=== PATIENT | male | born 2000 | race Caucasian/White ===

== ENCOUNTER 2022-07-16 07:03 | Inpatient (IN) | payer MEDICAID, SELFPAY ==
[2022-07-16] VITALS (23 sets, daily range): BP systolic 110–167; BP diastolic 50–129; PULSE 103–128; RESP 16–20; TEMP 36.2–36.9; O2SAT 91–100; BMI 34.9
--- NOTE | 2022-07-16 07:16 | ED.ABDPAIN ---
HPI - Abdominal Pain General Chief Complaint: Abdominal Pain <Du Nava MD - Last Filed: 07/16/22 07:21> Stated Complaint: Stomach pain <Du Nava MD - Last Filed: 07/16/22 07:21> Time Seen by Provider: 07/16/22 07:11 <Du Nava MD - Last Filed: 07/16/22 07:21> History of Present Illness HPI narrative: Pt is a previously healthy 22 year old gentleman who presents with lower abd pain. Pain has been present for the past 3 days. No diarrhea but he has had some occasional vomiting without blood. No fevers or chills at home. Others at home have had mild GI symptoms as well. Pt states that the pain is severe at times but currently is only moderate. Pt states the pain is primarily in the midline below his belly button. No similar symptoms and no previous surgery. Pt appetite has been reduced as has his fluid intake. <Du Nava MD - Last Filed: 07/16/22 07:21> Related Data Home Medications: Home Medications Medication Instructions Recorded Confirmed No Known Home Medications 07/16/22 07/16/22 <Du Nava MD - Last Filed: 07/16/22 07:21> Allergies/Adverse Reactions: Allergies Allergy/AdvReac Type Severity Reaction Status Date / Time No Known Drug Allergies Allergy Verified 07/16/22 07:16 <Du Nava MD - Last Filed: 07/16/22 07:21> Review of Systems Status of ROS Reports: 10 or more systems reviewed and unremarkable except as noted in History and below <Du Nava MD - Last Filed: 07/16/22 07:21> PFS PFS Surgical History: Surgical History (Updated 07/16/22 @ 11:05 by Dorcas Sidhu MD) [place] teeth extracted ?K08.409 - Partial loss of teeth, unspecified cause, unspecified class (ICD-10) <Du Nava MD - Last Filed: 07/16/22 07:21> Social History: Social History (Updated 07/16/22 @ 11:05 by Dorcas Sidhu MD) Narrative: 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 Smoking Status: Never smoker Do you use any of these nicotine containing products: None How often do you have a drink containing alcohol: 2-4 times a month AUDIT-C Alcohol total score: 2 Non-prescribed substance use: denies use <Du Nava MD - Last Filed: 07/16/22 07:21> Exam Narrative: Exam Narrative: EXAM GENERAL: Patient appears frightened. EYES: No scleral icterus THYROID: no thyroid nodules or thyromegaly. LYMPH: No supraclavicular or cervical lymphadenopathy. SKIN: Visible skin seen during exam normal or with benign process only. EXT: No dependent lower extremity pedal edema. HEART: Tachycardic but regular LUNGS: Clear to auscultation bilaterally with no crackles or wheezes. ABD: Mildly distended hypoactive bowel sounds no rebound noted. PSYCH: Good eye contact, speech is not pressured. Neurologic cranial nerves 2-12 grossly intact no focal defects. <Du Nava MD - Last Filed: 07/16/22 07:21> Const: Vital Signs, click to edit/add: Vital Signs - 24 hr 07/16/22 07:14 07/16/22 08:13 Temperature 98.4 F Pulse Rate [Right Pulse Oximeter] 128 H 117 H Respiratory Rate 20 18 Blood Pressure [Ri ght Upper Arm] 127/71 113/71 Pulse Oximetry 97 97 Oxygen Delivery Me thod Room Air Room Air <Du Nava MD - Last Filed: 07/16/22 07:21> Vital Signs, click to edit/add: Vital Signs - 24 hr 07/16/22 07:14 07/16/22 08:13 Temperature 98.4 F Pulse Rate [Right Pulse Oximeter] 128 H 117 H Respiratory Rate 20 18 Blood Pressure [Ri ght Upper Arm] 127/71 113/71 Pulse Oximetry 97 97 Oxygen Delivery Me thod Room Air Room Air <Stephie Zavala MD - Last Filed: 07/16/22 13:01> Course Course Hospital Course: Pt seen and examined. Tachycardia noted. CT of abd and pelvis, UA, CBC, Amylase, Lipase, CMP ordered. Pt given 1 liter of normal saline and 4 mg of IV Zofran. <Du Nava MD - Last Filed: 07/16/22 07:21> Reevaluation(s) Reevaluation #1: Reviewed with patient that his COVID PCR was positive. He does not have any active symptoms currently of COVID, does not recollect any recent illness. We will be doing the indigent to see if he is still shutting any COVID virus. Reviewed that he has acute appendicitis, the surgeon will be in to discuss this with him further. Plan will be to go to the OR. He states his pain is controlled at this time. <Stephie Zavala MD - Last Filed: 07/16/22 13:01> Time: 09:28 <Stephie Zavala MD - Last Filed: 07/16/22 13:01> Consultations Consultation #1: Radiologist did call me to say that there was appendicitis with perforation. Called surgery on-call Dr. Eller after that. She did look at his scans. She is going to attempt to get the surgical team in quickly, will try to initiate antibiotics within 1 hour of going to the OR. His COVID PCR came back positive, am going to test his antigen. Will try to find out if he is had any recent COVID illness or symptoms. Did review with both the radiologist as well as the surgeon that his urine is showing positivity on nitrates. I do wonder if the right ureter might be inflamed from the appendicitis and triggering this result. His creatinine is just mildly elevated as well. This will have to be followed, urine culture is pending. Again antibiotics will be initiated with coordination with the general surgeon. <Stephie Zavala MD - Last Filed: 07/16/22 13:01> Time: 09:08 <Stephie Zavala MD - Last Filed: 07/16/22 13:01> Vital Signs Vital signs: Initial Vital Signs Temperature 98.4 F 07/16/22 07:14 Temperature Source Oral 07/16/22 07:14 Pulse Rate 128 H 07/16/22 07:14 Respiratory Rate 20 07/16/22 07:14 Blood Pressure 127/71 07/16/22 07:14 Blood Pressure Mean 89 07/16/22 07:14 Blood Pressure Position Sitting 07/16/22 07:14 Pulse Oximetry 97 07/16/22 07:14 Oxygen Delivery Method Room Air 07/16/22 07:14 Vital Signs Temperature 98.4 F 07/16/22 07:14 Pulse Rate 128 H 07/16/22 07:14 Respiratory Rate 20 07/16/22 07:14 Blood Pressure 127/71 07/16/22 07:14 Pulse Oximetry 97 07/16/22 07:14 Oxygen Delivery Method Room Air 07/16/22 07:14 Temperature 98.4 F 07/16/22 07:14 Pulse Rate 117 H 07/16/22 08:13 Respiratory Rate 18 07/16/22 08:13 Blood Pressure 113/71 07/16/22 08:13 Pulse Oximetry 97 07/16/22 08:13 Oxygen Delivery Method Room Air 07/16/22 08:13 <Du Nava MD - Last Filed: 07/16/22 07:21> Initial Vital Signs Temperature 98.4 F 07/16/22 07:14 Temperature Source Oral 07/16/22 07:14 Pulse Rate 128 H 07/16/22 07:14 Respiratory Rate 20 07/16/22 07:14 Blood Pressure 127/71 07/16/22 07:14 Blood Pressure Mean 89 07/16/22 07:14 Blood Pressure Position Sitting 07/16/22 07:14 Pulse Oximetry 97 07/16/22 07:14 Oxygen Delivery Method Room Air 07/16/22 07:14 Vital Signs Temperature 98.4 F 07/16/22 07:14 Pulse Rate 128 H 07/16/22 07:14 Respiratory Rate 20 07/16/22 07:14 Blood Pressure 127/71 07/16/22 07:14 Pulse Oximetry 97 07/16/22 07:14 Oxygen Delivery Method Room Air 07/16/22 07:14 Temperature 98.4 F 07/16/22 07:14 Pulse Rate 117 H 07/16/22 08:13 Respiratory Rate 18 07/16/22 08:13 Blood Pressure 113/71 07/16/22 08:13 Pulse Oximetry 97 07/16/22 08:13 Oxygen Delivery Method Room Air 07/16/22 08:13 <Stephie Zavala MD - Last Filed: 07/16/22 13:01> MDM - Abdominal Pain Differential Diagnosis Differential diagnosis: Likely abdominal pain, acute appendicitis, calculus of kidney, constipation, diverticulitis, gastroenteritis and small bowel obstruction <Stephie Zavala MD - Last Filed: 07/16/22 13:01> Lab Data Attestation: I reviewed the patient's lab results. <Stephie Zavala MD - Last Filed: 07/16/22 13:01> Labs: Lab Results 07/16/22 07/16/22 07/16/22 Range/Units 07:25 08:26 09:13 WBC 29.51 H* (4.50-11.00) K/uL RBC 6.23 H (4.30-5.90) m/uL Hgb 17.0 (13.5-17.5) gm/dL Hct 49.6 (37.0-53.0) % MCV 80 (80-100) fL MCH 27 (26-34) pg MCHC 34 (32-36) gm/dL RDW Coeff of Lucy 14.3 (11.5-15.5) % Plt Count 270 (140-440) K/uL Neut % (Auto) 90.2 H (42.0-72.0) % Lymph % (Auto) 4.3 L (20-44) % [place] % (Auto) 4.8 (0.0-11.0) % Eos % (Auto) 0.0 (0.0-7.0) % Baso % (Auto) 0.1 (0.0-3.0) % Neut # (Auto) 26.60 H (1.7-7.0) K/uL Lymph # (Auto) 1.30 (0.90-2.90) K/uL [place] # (Auto) 1.40 H (0.00-0.90) K/UL Eos # (Auto) 0.00 (0.00-0.50) K/uL Baso # (Auto) 0.00 (0.00-0.30) K/uL Diff Slide Review Acceptable Review (Acceptable) Sodium 132 L (135-149) mmol/L Potassium 4.4 (3.6-5.1) mmol/L Chloride 98 (96-114) mmol/L Carbon Dioxide 21 (20-32) mmol/L BUN 18 (5-24) mg/dL Creatinine 1.7 H (0.5-1.5) mg/dL Estimated Creat Clear 59.29 Estimated GFR 58 ml/min Glucose 170 H (60-115) mg/dL Calcium 9.0 (8.4-10.6) mg/dL Total Bilirubin 1.7 H (0.1-1.5) mg/dL AST 29 (12-35) U/L ALT 72 H (4-50) U/L Alkaline Phosphatase 93 (40-150) U/L Total Protein 8.1 (6.0-8.3) g/dL Albumin 4.6 (3.3-5.0) g/dL Amylase 59 (18-89) U/L Lipase 32 (23-300) U/L Urine Color Lori A (Yellow) Urine Appearance Slightly Cloudy A (Clear) Urine pH 5.0 (5.0-8.5) Ur Specific [place] >= 1.030 (1.000-1.030) Urine Protein 3+ A (Negative) Urine Glucose (UA) Negative (Negative) Urine Ketones Trace A (Negative) Urine Blood Trace-intact A (Negative) Urine Nitrite Positive A (Negative) Urine Bilirubin 2+ A (Negative) Urine Urobilinogen 1.0 (0.2-1.0) Ur Leukocyte Esterase Negative (Negative) Urine RBC 0-2 (0-2) Urine WBC 0-2 (0-5) Ur Squamous Epith Cells None (None-Few) Amorphous Sediment Moderate A (None) Urine Bacteria Many A (None) SARS-CoV-2 (PCR) POSITIVE SARS-CoV-2 A (Negative) SARS-CoV-2 Ag (Rapid) negative (Negative) <Du Nava MD - Last Filed: 07/16/22 07:21> Lab Results 07/16/22 07/16/22 07/16/22 Range/Units 07:25 08:26 09:13 WBC 29.51 H* (4.50-11.00) K/uL RBC 6.23 H (4.30-5.90) m/uL Hgb 17.0 (13.5-17.5) gm/dL Hct 49.6 (37.0-53.0) % MCV 80 (80-100) fL MCH 27 (26-34) pg MCHC 34 (32-36) gm/dL RDW Coeff of Lucy 14.3 (11.5-15.5) % Plt Count 270 (140-440) K/uL Neut % (Auto) 90.2 H (42.0-72.0) % Lymph % (Auto) 4.3 L (20-44) % [place] % (Auto) 4.8 (0.0-11.0) % Eos % (Auto) 0.0 (0.0-7.0) % Baso % (Auto) 0.1 (0.0-3.0) % Neut # (Auto) 26.60 H (1.7-7.0) K/uL Lymph # (Auto) 1.30 (0.90-2.90) K/uL [place] # (Auto) 1.40 H (0.00-0.90) K/UL Eos # (Auto) 0.00 (0.00-0.50) K/uL Baso # (Auto) 0.00 (0.00-0.30) K/uL Diff Slide Review Acceptable Review (Acceptable) Sodium 132 L (135-149) mmol/L Potassium 4.4 (3.6-5.1) mmol/L Chloride 98 (96-114) mmol/L Carbon Dioxide 21 (20-32) mmol/L BUN 18 (5-24) mg/dL Creatinine 1.7 H (0.5-1.5) mg/dL Estimated Creat Clear 59.29 Estimated GFR 58 ml/min Glucose 170 H (60-115) mg/dL Calcium 9.0 (8.4-10.6) mg/dL Total Bilirubin 1.7 H (0.1-1.5) mg/dL AST 29 (12-35) U/L ALT 72 H (4-50) U/L Alkaline Phosphatase 93 (40-150) U/L Total Protein 8.1 (6.0-8.3) g/dL Albumin 4.6 (3.3-5.0) g/dL Amylase 59 (18-89) U/L Lipase 32 (23-300) U/L Urine Color Lori A (Yellow) Urine Appearance Slightly Cloudy A (Clear) Urine pH 5.0 (5.0-8.5) Ur Specific [place] >= 1.030 (1.000-1.030) Urine Protein 3+ A (Negative) Urine Glucose (UA) Negative (Negative) Urine Ketones Trace A (Negative) Urine Blood Trace-intact A (Negative) Urine Nitrite Positive A (Negative) Urine Bilirubin 2+ A (Negative) Urine Urobilinogen 1.0 (0.2-1.0) Ur Leukocyte Esterase Negative (Negative) Urine RBC 0-2 (0-2) Urine WBC 0-2 (0-5) Ur Squamous Epith Cells None (None-Few) Amorphous Sediment Moderate A (None) Urine Bacteria Many A (None) SARS-CoV-2 (PCR) POSITIVE SARS-CoV-2 A (Negative) SARS-CoV-2 Ag (Rapid) negative (Negative) <Stephie Zavala MD - Last Filed: 07/16/22 13:01> Imaging Data CT scan - abdomen: Attestation: I have reviewed the pertinent imaging results. <Stephie Zavala MD - Last Filed: 07/16/22 13:01> Radiologist's impression: Patient: JENNIFER CHRISTOPHER Facility:?[facility] Patient ID:?[id number] Site Patient ID:?[id number]. Site :?[id number] Study:?CT Abdomen/Pelvis W ISOVUE 370-07/16/2022 7:59:20 AM Ordering Physician:?Brandy Sandy Final Report: INDICATION: ABD PAIN TECHNIQUE: CT abdomen and pelvis with 100 cc Isovue 370 IV contrast. COMPARISON: None. FINDINGS: Hepatomegaly and hepatic steatosis. Gallbladder and biliary tree are normal. The spleen, adrenal glands and pancreas are within normal limits. No evidence of bowel obstruction. Dilated fluid-filled appendix measuring 1.4 cm, with wall thickening and surrounding inflammation. Within the midportion appendix there is an appendicolith measuring approximately 1 cm. There is also open globe at the appendix base measuring 1.2 cm. The kidneys are unremarkable. Inflamed appendix abuts the distal right ureter without evidence of hydronephrosis. Decompressed bladder. Throughout the abdomen there is scattered small amount of pneumoperitoneum. Small amount of free fluid in the pelvis. Pelvic organs are unremarkable. The lower chest is unremarkable. IMPRESSION: Findings compatible with acute appendicitis. Throughout the abdomen and scattered small amount of pneumoperitoneum which is concerning for perforated appendicitis. There is a 1.2 cm appendicolith at the appendix base. Hepatomegaly and hepatic steatosis. Findings discussed Dr. Stephie Damon at 9:10 a.m. Please note that all CT scans at this facility use dose modulation, iterative reconstruction, and/or weight-based dosing when appropriate to reduce radiation dose to as low as reasonably achievable. Dictated by Yrn Ruiz MD @ 07/16/2022 9:12:33 AM (Electronic Signature) <Stephie Zavala MD - Last Filed: 07/16/22 13:01> ECG Data Attestation: I personally reviewed and interpreted this ECG as follows: (Sinus tachycardia, 116 beats per minute. No arrhythmia, no ischemia. QT corrected 430 milliseconds.) <Stephie Zavala MD - Last Filed: 07/16/22 13:01> ECG interpretation date: 07/16/22 <Stephie Zavala MD - Last Filed: 07/16/22 13:01> ECG interpretation time: 08:31 <Stephie Zavala MD - Last Filed: 07/16/22 13:01> Prior ECG tracings: not available for review <Stephie Zavala MD - Last Filed: 07/16/22 13:01> Critical Care Time Critical Care Time Critical Care Time: No <Stephie Zavala MD - Last Filed: 07/16/22 13:01> Discharge Plan Discharge Clinical Impression: Real time reverse transcriptase PCR positive for COVID-19 virus, Abnormal finding on urinalysis, Acute appendicitis <Du Nava MD - Last Filed: 07/16/22 07:21> Patient Disposition: Admitted As Inpatient <Du Nava MD - Last Filed: 07/16/22 07:21> Condition: Unchanged <Du Nava MD - Last Filed: 07/16/22 07:21>
--- NOTE | 2022-07-16 07:21 | CRLHL7_ITS ---
For Patients: As a result of the Century Cures Act, medical imaging exams and procedure reports are released immediately into your electronic medical record. You may view this report before your referring provider. If you have questions, please contact your health care provider. INDICATION: ABD PAIN TECHNIQUE: CT abdomen and pelvis with 100 cc Isovue 370 IV contrast. COMPARISON: None. FINDINGS: Hepatomegaly and hepatic steatosis. Gallbladder and biliary tree are normal. The spleen, adrenal glands and pancreas are within normal limits. No evidence of bowel obstruction. Dilated fluid-filled appendix measuring 1.4 cm, with wall thickening and surrounding inflammation. Within the midportion appendix there is an appendicolith measuring approximately 1 cm. There is also open globe at the appendix base measuring 1.2 cm. The kidneys are unremarkable. Inflamed appendix abuts the distal right ureter without evidence of hydronephrosis. Decompressed bladder. Throughout the abdomen there is scattered small amount of pneumoperitoneum. Small amount of free fluid in the pelvis. Pelvic organs are unremarkable. The lower chest is unremarkable. IMPRESSION: Findings compatible with acute appendicitis. Throughout the abdomen and scattered small amount of pneumoperitoneum which is concerning for perforated appendicitis. There is a 1.2 cm appendicolith at the appendix base. Hepatomegaly and hepatic steatosis. Findings discussed Dr. Stephie Damon at 9:10 a.m. Please note that all CT scans at this facility use dose modulation, iterative reconstruction, and/or weight-based dosing when appropriate to reduce radiation dose to as low as reasonably achievable. Dictated by Yrn Ruiz MD @ 07/16/2022 9:12:33 AM (Electronically Signed)
[2022-07-16] MEDS: 0.9 % SODIUM CHLORIDE 1000 ml 1,000 ML IV (07:40)
[2022-07-16] MEDS: ONDANSETRON 2 MG/ML inj 4 MG IVP (07:40)
[2022-07-16 07:46] LABS: Appearance Urine Slightly Cloudy (Clear); Bilirubin Urine 2+ (Negative); Blood Urine Trace-intact (Negative); Color Urine Amber (Yellow); Glucose Urine Negative (Negative); Ketones Urine Trace (Negative); Leukocyte Esterase Urine Negative (Negative); Nitrite Urine Positive (Negative); Protein Urine 3+ (Negative); Specific Gravity Urine >= 1.030 (1.000-1.030)
[2022-07-16 07:49] LABS: Basophils Percent Auto 0.1 % (0.0-3.0); Hematocrit 49.6 % (37.0-53.0); Immature Granulocytes Pct Auto 0.6 %; Lymphocytes Percent Auto 4.3 % (20-44); Mean Corpuscular HGB Conc 34 gm/dL (32-36); Mean Corpuscular Hemoglobin 27 pg (26-34); Mean Corpuscular Volume 80 fL (80-100); Monocytes Percent Auto 4.8 % (0.0-11.0); Neutrophils Percent Auto 90.2 % (42.0-72.0); Platelet Count* 270 K/uL (140-440); RDW Coefficient of Variation % 14.3 % (11.5-15.5); Red Blood Count 6.23 m/uL (4.30-5.90)
[2022-07-16 07:57] LABS: Amorphous Sediment Urine Moderate; Bacteria Urine Many; RBC Urine 0-2 (0-2); WBC Urine 0-2 (0-5)
[2022-07-16] MEDS: KETOROLAC 30 MG/ML inj IVP (08:00)
[2022-07-16 08:02] LABS: Albumin* 4.6 g/dL (3.3-5.0); Chloride* 98 mmol/L (96-114)
[2022-07-16 08:03] LABS: Potassium* 4.4 mmol/L (3.6-5.1); Sodium* 132 mmol/L (135-149)
[2022-07-16 08:05] LABS: Alkaline Phosphatase* 93 U/L (40-150); Amylase* 59 U/L (18-89); Aspartate Amino Transferase* 29 U/L (12-35); Bilirubin Total* 1.7 mg/dL (0.1-1.5); Blood Urea Nitrogen* 18 mg/dL (5-24); Carbon Dioxide* 21 mmol/L (20-32); Creatinine* 1.7 mg/dL (0.5-1.5); Est. Creatinine Clearance* 59.29; Estimated Glomerular Filt Rate 58 ml/min; Total Protein* 8.1 g/dL (6.0-8.3)
[2022-07-16 08:06] LABS: Alanine Aminotransferase* 72 U/L (4-50); Glucose* 170 mg/dL (60-115); Lipase* 32 U/L (23-300)
[2022-07-16 08:21] LABS: White Blood Count* 29.51 K/uL (4.50-11.00)
[2022-07-16 08:22] LABS: Slide Review Reflex Yes
[2022-07-16 08:23] LABS: Slide Review Acceptable Review (Acceptable)
[2022-07-16] MEDS: LACTATED RINGERS 1000 ML 1,000 ML 500 ML IV (09:01)
[2022-07-16 09:08] LABS: SARS PCR* POSITIVE SARS-CoV-2 (Negative)
[2022-07-16 09:51] LABS: SARS Antigen* negative (Negative)
[2022-07-16] MEDS: PIPERACILLIN/TAZOBACTAM 3.375 GM in 0.9 % SODIUM CHLORIDE Mini-bag 100 ML IVPB ×3 (10:26→22:29)
--- NOTE | 2022-07-16 11:02 | PM.GSHP ---
History of Present Illness History of Present Illness Date Seen: 07/16/22 Chief complaint: Stomach pain Narrative: Favio Ryan is a 22 year old male presents to the emergency department with 2-3 days of abdominal pain. He states that early morning he woke up with mid abdominal pain. Slowly over the next 2 days it moved to his lower mid abdomen. Yesterday he had a fever of 104. He states that laying down Wade the pain but it is worse with movement. He has never had anything like this before. He does have some intermittent discomfort with urination. He had a bowel movement today. He has had no diarrhea. He vomited yesterday and has had intermittent nausea with this. He he has never had anything like this before. He has no chest pain, shortness of breath or cough. He last ate an apple and some water at 6:00 a.m.. Of note, he tested positive for COVID on his PCR, however he was antigen negative. Several family members including his mom and dad do have an upper respiratory illness but have not tested for COVID. 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 Smoking Status: Never smoker Do you use any of these nicotine containing products: None How often do you have a drink containing alcohol: 2-4 times a month AUDIT-C Alcohol total score: 2 Non-prescribed substance use: denies use Meds Home Medications and Allergies Home Medications Medication Instructions Recorded Confirmed Type No Known Home Medications 07/16/22 07/16/22 History Allergies Allergy/AdvReac Type Severity Reaction Status Date / Time No Known Drug Allergies Allergy Verified 07/16/22 07:16 Exam Narrative: Exam Narrative: General appearance: Alert, cooperative, and in no distress Eyes: PERRLA, eye lids clear, and sclera white HENT Head: Normocephalic Ears: External ears normal Pulmonary: Clear to auscultation bilaterally Cardiovascular Heart: Tachycardic but regular rhythm Extremities: warm and well perfused Gastrointestinal Abdominal: Protuberant. No scars. Mildly tender in the lower abdomen and right lower quadrant with rebound. Musculoskeletal: Extremities: Upper: Both upper extremities have normal joint range of motion and intact strength. Lower: Both lower extremities have normal joint range of motion and intact strength. Skin: Normal skin color, texture, and turgor. No rashes or lesions. Neurologic: No focal deficits Psychiatric: Alert, oriented, cooperative, normal affect. Const: Vital Signs, click to edit/add: Vital Signs - 24 hr 07/16/22 07:14 07/16/22 08:13 Temperature 98.4 F Pulse Rate [Right Pulse Oximeter] 128 H 117 H Respiratory Rate 20 18 Blood Pressure [Ri ght Upper Arm] 127/71 113/71 Pulse Oximetry 97 97 Oxygen Delivery Me thod Room Air Room Air Results Results Labs: White blood cell count is 29.5. Sodium 132 Creatinine is 1.7 Glucose 170 Total bilirubin is 1.7. No direct fraction is available ALT is 72. Remainder of chemistry labs are normal PCR positive for COVID, antigen negative UA is cloudy with positive nitrates Additional studies: Diagnostic Imaging Report Patient: Favio Duckworth Attending Dr: Ordering Physician: Du Nava M.D. Date of Service: 07/16/22 Procedure(s): CT abdomen pelvis w con Accession Number(s): [id number] cc: Hima Carney M.D.; Du Nava M.D.~ For Patients:? As a result of the Century Cures Act, medical imaging exams and procedure reports are released immediately into your electronic medical record.? You may view this report before your referring provider.? If you have questions, please contact your health care provider. INDICATION: ABD PAIN TECHNIQUE: CT abdomen and pelvis with 100 cc Isovue 370 IV contrast. COMPARISON: None. FINDINGS: Hepatomegaly and hepatic steatosis. Gallbladder and biliary tree are normal. The spleen, adrenal glands and pancreas are within normal limits. No evidence of bowel obstruction. Dilated fluid-filled appendix measuring 1.4 cm, with wall thickening and surrounding inflammation. Within the midportion appendix there is an appendicolith measuring approximately 1 cm. There is also open globe at the appendix base measuring 1.2 cm. The kidneys are unremarkable. Inflamed appendix abuts the distal right ureter without evidence of hydronephrosis. Decompressed bladder. Throughout the abdomen there is scattered small amount of pneumoperitoneum. Small amount of free fluid in the pelvis. Pelvic organs are unremarkable. The lower chest is unremarkable. IMPRESSION: Findings compatible with acute appendicitis. Throughout the abdomen and scattered small amount of pneumoperitoneum which is concerning for perforated appendicitis. There is a 1.2 cm appendicolith at the appendix base. Hepatomegaly and hepatic steatosis. Findings discussed Dr. Stephie Damon at 9:10 a.m. Please note that all CT scans at this facility use dose modulation, iterative reconstruction, and/or weight-based dosing when appropriate to reduce radiation dose to as low as reasonably achievable. Dictated by Yrn Ruiz MD @ 07/16/2022 9:12:33 AM (Electronically Signed) Assessment and Plan Assessment and plan (1) CHENTE (acute kidney injury): Status: Acute (2) Hyperglycemia: Status: Acute (3) UTI (urinary tract infection): Status: Acute (4) Real time reverse transcriptase PCR positive for COVID-19 virus: Status: Acute (5) Abnormal finding on urinalysis: Status: Acute (6) Acute appendicitis: Status: Acute Plan The patient is a 22-year-old male with acute appendicitis which CT appears to show as perforated. He also has elevated creatinine, hyperglycemia and a very abnormal UA. He has tested positive for COVID but is asymptomatic and antigen test was negative. Either early or recovering asymptomatic infection. We discussed that appendectomy is the preferred treatment for this. This can most often be done laparoscopically. We discussed risks and benefits of the procedure including but not limited to bleeding, need for conversion to open, risk of injury to other structures, need for possible bowel resection, and abscess formation. The patient understands that the risk of abscess is higher if the appendix is perforated. For that reason, we generally keep patient is in the hospital on IV antibiotics until vital signs and white blood cell count had normalized. We also discussed recovery including lifting restrictions. Pending on findings intraoperatively I may consult hospitalist to assist in management. I suspect all of his abnormal laboratory values are secondary to his acute illness. The patient is agreeable with this plan and signed informed consent. We will proceed with surgery emergently.
[2022-07-16] MEDS: BUPIVACAINE 0.25% 30 ML INJECTION (11:50)
--- NOTE | 2022-07-16 12:20 | PM.GSPRC ---
Operative Note Date of procedure: 07/16/22 Pre-op diagnosis: Perforated appendicitis Post-op diagnosis: Same Type of Procedure: Laparoscopic appendectomy Indications: The patient is a 22-year-old male who presented to the emergency department with 2 days of abdominal pain. Workup revealed multiple laboratory derangements but also acute appendicitis with likely perforation. I recommended appendectomy after discussion of risks and benefits and he agreed to proceed. Procedure Description: After discussing the risks and benefits of the procedure, the patient signed informed consent.? The operative site was marked and the patient was brought to the operating room and placed on the operating table in supine position.? Care was taken to pad the patient's pressure points.?? The patient was then intubated by anesthesia.?? The operative site was then prepped and draped in the usual sterile fashion.? A time-out was then performed. Entrance to the abdomen was obtained via a 5 mm optical trocar in the left upper quadrant. The abdomen was insufflated and briefly surveyed for any signs of injury. There were none. A 12 mm port was placed just superior to the umbilicus as well as a 5 mm port in the left lower quadrant. Both were done under direct vision. The patient was then placed in Trendelenburg position with the right side up. The small bowel was gently moved out of the way and the appendix was identified. It was noted to be necrotic and there was purulent fluid in the pelvis. There was a perforation but it appeared fairly well contained in the right lower quadrant. Patient had a large amount of intra-abdominal fat and therefore to provide exposure, an additional 5 mm port was placed superior to the umbilicus in the midline. My assistant plant control operator then gently retracted the cecum to provide exposure. The appendix was able to be dissected from the pelvic attachments bluntly and pulled into view. There was a perforation just distal to the appendiceal base, however there was a nice healthy area of appendix at the base. A mesenteric window was created between the base of the appendix and the mesoappendix. An Endo-PRIMO purple load stapler was then used to transect the appendix at its base. LigaSure was then used to divide the mesoappendix. The staple line was inspected for bleeding. There was none. Purulent fluid was suction from the appendiceal bed as well as the pelvis. The appendix was then removed from the abdomen using an Endo-Catch bag. I then placed a right lower quadrant port and through this a 18 [place] drain. This was placed in the appendiceal bed. This was sutured in place with 2 0 nylon. The specimen was sent to pathology. The 12 mm port site fascia was closed with 0 Vicryl using a combination of an open technique and Bobby-Gary given the patient's thick abdominal wall. The skin was then closed with absorbable subcuticular suture. Sterile dressings were then applied. Instrument sponge and needle counts were correct at the end of the case. The patient was then woken and transported to the PACU in stable condition. ? The patient tolerated the procedure well. Findings: Perforated appendicitis with purulent fluid in the pelvis, however perforation appeared to be contained. Implants: Nineteen [place] drain left in the right lower quadrant. Anesthesia: GETA Surgeon: Dorcas Sidhu MD Estimated blood loss (mL): 5 Specimen: Appendix Condition: stable Disposition: PACU
--- NOTE | 2022-07-16 12:51 | P.NB_ITS ---
Nerve Block Nerve Block Time Seen by Provider: 12:40 Date Seen: 07/16/22 Type of block requested by surgeon for post-operative analgesia: TAP Side: bilateral Time out performed: Yes Verification of patient name: Yes Verification of date of : Yes Site marking: site marked Name of person performing procedure: Vincent Shi Continuous monitoring Was continuous monitoring of O2 sat, B/P, quality assurance monitor, recorded every 15 minutes?: Yes Procedure Checklist: sterile prep, needles and gloves Ultrasound guided. Images saved: Yes Medications given in 5ml increments after negative aspiration: Marcaine %: 0.25 mL: 30 Needle gauge: 20 and Exparel mL: 10 Needle gauge: 20 Patient tolerated procedure well: Yes Additional comments: Injected in 5ml increments after negative aspiration Block Charges Block Charge (with Pro Fee): TAP Bilateral Use of Ultrasound Machine for Block: Yes- US Guidance/pain block
--- NOTE | 2022-07-16 12:52 | P.ANES_ITS ---
Anesthesia Charges Start Date/Time Anesthesia Start Date: 07/16/22 Anesthesia Start Time: 11:05 Stop Date/Time Anesthesia Stop Date: 07/16/22 Anesthesia Stop Time: 12:49 Summary Emergency: DIRECTOR OF OPERATIONS SUPPORT
[2022-07-16 14:02] LABS: Hemoglobin A1C* 5.45 % (0-5.6)
[2022-07-16] MEDS: LACTATED RINGERS 1000 ML 1,000 ML 100 ML IV (14:02)
[2022-07-16 14:29] LABS: C Reactive Protein* 33.2 mg/dL (0.5-1.0)
--- NOTE | 2022-07-16 15:26 | P.IMCN_ITS ---
Date of Consult Patient: Reyna Patient Consult date: 07/16/22 Requesting Physician: General Surgery Primary Care Provider: Hima Carney MD Consult Narrative Reason for consult: Perforated appendicitis, help comanage Narrative: Favio Ryan is a 22 year old man presents early this morning with the 2-3 day history of increasing abdominal pain. T-max at home 104? F. He is tachycardic. His white blood cell count is 30,000 with a left shift. CT of abdomen and pelvis suggests perforated appendicitis. He is brought urgently to the operating room for laparoscopic appendectomy in his found to have a contained, perforated appendicitis. Has a drain left in place. He tells me he feels at least 30% better than when he was feeling like prior to surgery. Dr. Sidhu has asked the hospitalist to help comanage the patient's underlying comorbid conditions. To the best of his knowledge is generally healthy. Does not follow with a usual physician. Actively engaged in life in living without any limitations. Lives with family. 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 Review of Systems Status of ROS: Reports: 10 or more systems reviewed and unremarkable except as noted in History and below Narrative: Denies chest heaviness, pressure, tightness, or pain. Denies cough, dyspnea at rest, dyspnea with exertion, paroxysmal nocturnal dyspnea, orthopnea. Denies syncope or near-syncope. Has had nausea without vomiting. Denies diarrhea. Seemingly intermittent episodes of dysuria without hematuria, urgency, frequency. Denies polyuria, polydipsia, polyphagia. Denies fevers, rigors, diaphoresis. No recent trauma or injury. He tells me he was diagnosed with COVID-19 on 05/13/2022. Lives with his family. Recently family members have had URI symptoms but no diagnosis of COVID-19. Denies focal motor neurologic de ficits. No unexplained weight gain or weight loss. 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 Smoking Status: Never smoker Do you use any of these nicotine containing products: None How often do you have a drink containing alcohol: 2-4 times a month AUDIT-C Alcohol total score: 2 Non-prescribed substance use: denies use Meds Home Medications and Allergies Home Medications Medication Instructions Recorded Confirmed Type No Known Home Medications 07/16/22 07/16/22 History Allergies Allergy/AdvReac Type Severity Reaction Status Date / Time No Known Drug Allergies Allergy Verified 07/16/22 07:16 Exam Narrative: Exam Narrative: No acute distress. Appears tired. Alert, oriented to self, place, time, situation. Friendly, cooperative, articulate. Mood and affect are congruent. Enlarged tonsils bilaterally right greater than left. No exudate or discharge. Midline trachea. Supple neck. No JVD, hepatojugular reflux, carotid bruits. Lungs are clear to auscultation without wheezing, rhonchi, or rales. Heart tones tachycardic but with regular rhythm, normal S1-S2, without murmur, gallop, or rub. Abdomen with active bowel sounds, soft, nontender. Drain noted. Extremities without edema. Post all 4 extremities. No tremor, asterixis, or ataxia. Const: Vital Signs, click to edit/add: Vital Signs - 24 hr 07/16/22 07:14 07/16/22 08:13 Temperature 98.4 F Pulse Rate [Right Pulse Oximeter] 128 H 117 H Respiratory Rate 20 18 Blood Pressure [Ri ght Upper Arm] 127/71 113/71 Pulse Oximetry 97 97 Oxygen Delivery Me thod Room Air Room Air Documenting provider has reviewed patient's vital signs: yes Labs Labs: Short CBC 07/16/22 Range/Units 07:25 WBC 29.51 H* (4.50-11.00) K/uL Hgb 17.0 (13.5-17.5) gm/dL Hct 49.6 (37.0-53.0) % Plt Count 270 (140-440) K/uL BMP 07/16/22 07:25 Sodium 132 L Potassium 4.4 Chloride 98 Carbon Dioxide 21 BUN 18 Creatinine 1.7 H Glucose 170 H Calcium 9.0 Liver Function 07/16/22 Range/Units 07:25 Total Bilirubin 1.7 H (0.1-1.5) mg/dL AST 29 (12-35) U/L ALT 72 H (4-50) U/L Alkaline Phosphatase 93 (40-150) U/L Albumin 4.6 (3.3-5.0) g/dL Urine 07/16/22 Range/Units 07:25 Urine Color Lori A (Yellow) Urine Appearance Slightly Cloudy A (Clear) Urine pH 5.0 (5.0-8.5) Ur Specific [place] >= 1.030 (1.000-1.030) Urine Protein 3+ A (Negative) Urine Glucose (UA) Negative (Negative) Imaging CT scan - abdomen: Attestation: I have reviewed the pertinent imaging results. Radiologist's impression: IMPRESSION: Findings compatible with acute appendicitis. Throughout the abdomen and scattered small amount of pneumoperitoneum which is concerning for perforated appendicitis. There is a 1.2 cm appendicolith at the appendix base. Hepatomegaly and hepatic steatosis. Assessment and Plan Assessment and plan (1) Acute appendicitis: Status: Acute (2) Perforated appendix: Status: Acute (3) Sepsis: Status: Acute (4) CHENTE (acute kidney injury): Status: Acute (5) Dehydration: Status: Acute (6) Hyponatremia: Status: Acute (7) Hepatomegaly: Status: Acute (8) Hepatic steatosis: Status: Acute (9) Hyperglycemia: Problem comment: Stress induced. HgA1C 5.45 on 07/16/22 Status: Acute (10) UTI (urinary tract infection): Status: Acute (11) History of COVID-19: Problem comment: 05/13/2022 Status: Acute (12) Real time reverse transcriptase PCR positive for COVID-19 virus: Status: Acute (13) Obesity: Problem comment: BMI 35 on Status: Acute (14) Enlarged tonsils: Status: Acute Plan 1. Reviewed impression with patient. Answered his questions. 2. Agree with appendectomy and drain left in place. 3. Agree with continued piperacillin tazobactam IV, for perforated appendix as well as for possible UTI. Await urine culture results. Unfortunately blood cultures were not obtained initially. 4. Continue with IV fluids and advance diet slowly as tolerated. Will alternate bags of lactated Ringer's and normal saline. 5. Monitor his input and output, daily weights, orthostatic blood pressures and pulses. 6. Even though he has a hemoglobin A1c that is normal at 5.45, blood sugars are still elevated and thus will follow with low-dose sliding scale a.c. and at bedtime. 7. I suspect the elevated bilirubin is most likely an indirect hyperbilirubinemia related to his dehydration state. Will ask the lab to run a direct bilirubin level from this morning's blood draw to confirm this. 8. Venous thromboembolism prophylaxis including ambulation in halls as to lerated. 9. Agree with laboratory studies. We will track the lactate as well. 10. To be on the safe side we will treat the patient as if though he has active COVID-19 right now although I do not think he does. 11. Continue to keep a close eye on his airway with his enlarged tonsils. 12. Patient agreeable with above stated plans and recommendations. 13. Hospitalist service will follow patient with General surgery while patient is in hospital.
[2022-07-16 16:23] LABS: Bilirubin Direct* 0.8 mg/dL (0.0-0.5)
[2022-07-16] MEDS: 0.9 % SODIUM CHLORIDE 1000 ml 1,000 ML 100 ML IV (17:04)
--- NOTE | 2022-07-16 18:16 | PC.NURSE ---
Pt arrived from PACU at 1330, pt denies pain, stating he feels a lot better than before surgery. x4 lap sites to abd, scant dried drainage noted to steri-strips, otherwise remain intact. KELLY drain to RLQ, 80ml output total since arriving to unit, bloody. Vitals stable, on RA, HR tachy low 100s, afebrile. Tolerating clear liquid diet this evening, states he doesn't feel ready to advance diet at this time, but denies nausea, taking diet slow from recent vomiting prior to coming into hospital, bowel sounds hypoactive. IVF of NS and LR, intermit. change every other bag, NS of 100ml/hr currently infusing. Zosyn admin this shift per order. Pt up w/ SBA to bathroom, voiding without difficulty. Family members visited at bedside briefly this afternoon. Accuchecks AC/HS, 133 this evening no SSI indicated. Pt has call light within reach and uses appropriately to express needs.
[2022-07-16] MEDS: HYDROCODONE-ACETAMIN 5-325 MG 1 TAB PO (19:52)
[2022-07-17] VITALS (12 sets, daily range): BP systolic 114–144; BP diastolic 77–96; PULSE 84–109; RESP 16–18; TEMP 36.7–37.4; O2SAT 94–97
[2022-07-17] MEDS: HYDROCODONE-ACETAMIN 5-325 MG 1 TAB PO ×2 (02:29→08:25)
[2022-07-17] MEDS: PIPERACILLIN/TAZOBACTAM 3.375 GM in 0.9 % SODIUM CHLORIDE Mini-bag 100 ML IVPB ×4 (04:33→22:35)
--- NOTE | 2022-07-17 05:14 | PC.NURSE ---
[id number] Pt rested well during night, no N/V noted, pt does acknowledge passing gas but no BM. KELLY drain patent and draining, serosanguineous with purulent drainage noted, decreasing in amount as night progressed. Lap sites x4, steri strips in place, old drainage noted at beginning of shift, no change to amount during shift. Bowel sounds hypoactive, abd swollen and distended. Pt applied ice to abd throughout shift. Up ind to BR, tolerating activity well.
[2022-07-17] MEDS: LACTATED RINGERS 1000 ML 1,000 ML 100 ML IV (05:53)
[2022-07-17 06:44] LABS: Basophils Percent Auto 0.1 % (0.0-3.0); Eosinophils Percent Auto 0.1 % (0.0-7.0); Hemoglobin* 14.1 gm/dL (13.5-17.5); Immature Granulocytes Pct Auto 0.3 %; Mean Corpuscular HGB Conc 34 gm/dL (32-36); Mean Corpuscular Hemoglobin 27 pg (26-34); Mean Corpuscular Volume 81 fL (80-100); Monocytes Percent Auto 3.7 % (0.0-11.0); Neutrophils Percent Auto 87.8 % (42.0-72.0); Platelet Count* 213 K/uL (140-440); RDW Coefficient of Variation % 14.5 % (11.5-15.5); Red Blood Count 5.22 m/uL (4.30-5.90); White Blood Count* 17.47 K/uL (4.50-11.00)
[2022-07-17 06:45] LABS: Slide Review Reflex No
[2022-07-17 07:07] LABS: Albumin* 3.6 g/dL (3.3-5.0); Chloride* 108 mmol/L (96-114); Sodium* 139 mmol/L (135-149)
[2022-07-17 07:09] LABS: Carbon Dioxide* 24 mmol/L (20-32); Creatinine* 0.8 mg/dL (0.5-1.5); Est. Creatinine Clearance* 125.99; Estimated Glomerular Filt Rate 128 ml/min
[2022-07-17 07:10] LABS: Alanine Aminotransferase* 51 U/L (4-50); Alkaline Phosphatase* 81 U/L (40-150); Aspartate Amino Transferase* 23 U/L (12-35); Bilirubin Direct* 0.5 mg/dL (0.0-0.5); Blood Urea Nitrogen* 13 mg/dL (5-24); Calcium* 8.4 mg/dL (8.4-10.6); Glucose* 128 mg/dL (60-115); Total Protein* 6.8 g/dL (6.0-8.3)
--- NOTE | 2022-07-17 07:34 | PM.IMPN1 ---
Progress Note: A&P Assessment and plan (1) Acute appendicitis: Problem details: post op day 1. continue zosyn. labs reviewed. further cares per gen surg team. Status: Acute (2) CHENTE (acute kidney injury): Problem details: resolved. hospital team can sign off unless needed. Status: Acute (3) Hyperglycemia: Problem details: Stress induced. HgA1C 5.45 on 07/16/22. no further intervention. recommend weight loss, exercise going forward. hospital team can sign off unless needed. Status: Acute (4) Hepatic steatosis: Status: Acute (5) UTI (urinary tract infection): Problem details: UC pending. likely inflammatory from infection; covered by zosyn. Status: Acute (6) Real time reverse transcriptase PCR positive for COVID-19 virus: Problem details: symptomatic in Apr 2022. Antigen neg pre-op. PCR pos pre-op (June 2022) Status: Acute (7) Obesity: Problem details: BMI 35 on 07/14 Status: Acute Subjective Date Seen: 07/17/22 Interval history: Daily Progress Note - Hospital Medicine Consult Day 2 Post-Op Day #: 1 - lap appy Zosyn day 2 CC: perforated appendicitis; post op hyperglycemia, CHENTE Afebrile since surgery and arrival on the floor Blood pressures have normalized. Currently 114/81. Pulse he remains mildly tachycardic but down trending. Currently 103. Sinus. Respiratory rate 18 Pulse ox 96%, room air His labs are all reassuring and down trending as expected for source control of his intra-abdominal infection. White count is down to 17.5, CRP is up a little; procal down >50%. No blood cultures drawn. Hemoglobin is stable Electrolytes are all normal. His CHENTE has resolved. His blood sugars are down trending. All less than 200. A1c 5.5 LFTs have all improved. Urine culture is still pending Objective: awake; resting. alert. tender, I'm very sore Vitals Reviewed/as above. Lungs: Clear. Cardiac: S1S2. Abdomen: surgical dressing clean/dry. drain has minimal output. distant bowel sound. tender appropriately. Total time is 30 minutes with greater than 50% spent in counseling and coordination of care. Exam Const: Vital Signs, click to edit/add: Vital Signs - 24 hr 07/16/22 08:13 07/16/22 13:49 07/16/22 13:58 Temperature 98.4 F Pulse Rate 115 H Pulse Rate [Left P ulse Oximeter] Pulse Rate [Right Pulse Oximeter] 117 H Pulse Rate [orthos tatic lying Right Pulse Oximeter] Pulse Rate [orthos tatic sitting Righ t Pulse Oximeter] Pulse Rate [orthos tatic standing Rig ht Pulse Oximeter] Respiratory Rate 18 16 Blood Pressure [Ri ght Arm] 129/79 Blood Pressure [Ri ght Upper Arm] 113/71 Blood Pressure [or thostatic lying Ri ght Arm] Blood Pressure [or thostatic sitting Right Arm] Blood Pressure [or thostatic standing Right Arm] Pulse Oximetry 97 94 Oxygen Delivery Me thod Room Air Room Air 07/16/22 13:30 07/16/22 13:45 07/16/22 15:30 Temperature 98.4 F 97.6 F 97.6 F Pulse Rate Pulse Rate [Left P ulse Oximeter] 115 H 110 H 109 H Pulse Rate [Right Pulse Oximeter] Pulse Rate [orthos tatic lying Right Pulse Oximeter] Pulse Rate [orthos tatic sitting Righ t Pulse Oximeter] Pulse Rate [orthos tatic standing Rig ht Pulse Oximeter] Respiratory Rate 16 16 16 Blood Pressure [Ri ght Arm] 129/79 129/129 H 122/78 Blood Pressure [Ri ght Upper Arm] Blood Pressure [or thostatic lying Ri ght Arm] Blood Pressure [or thostatic sitting Right Arm] Blood Pressure [or thostatic standing Right Arm] Pulse Oximetry 93 93 94 Oxygen Delivery Me thod Room Air Room Air Room Air 07/16/22 16:24 07/16/22 14:00 07/16/22 14:15 Temperature 97.9 F 97.9 F Pulse Rate Pulse Rate [Left P ulse Oximeter] 111 H 108 H Pulse Rate [Right Pulse Oximeter] Pulse Rate [orthos tatic lying Right Pulse Oximeter] Pulse Rate [orthos tatic sitting Righ t Pulse Oximeter] Pulse Rate [orthos tatic standing Rig ht Pulse Oximeter] Respiratory Rate 16 16 Blood Pressure [Ri ght Arm] 117/75 Blood Pressure [Ri ght Upper Arm] Blood Pressure [or thostatic lying Ri ght Arm] Blood Pressure [or thostatic sitting Right Arm] Blood Pressure [or thostatic standing Right Arm] Pulse Oximetry 94 93 94 Oxygen Delivery Me thod Room Air Room Air 07/16/22 14:30 07/16/22 15:00 07/16/22 16:30 Temperature 97.2 F L 97.6 F Pulse Rate Pulse Rate [Left P ulse Oximeter] 104 H 103 H 109 H Pulse Rate [Right Pulse Oximeter] Pulse Rate [orthos tatic lying Right Pulse Oximeter] Pulse Rate [orthos tatic sitting Righ t Pulse Oximeter] Pulse Rate [orthos tatic standing Rig ht Pulse Oximeter] Respiratory Rate 16 16 Blood Pressure [Ri ght Arm] 137/50 L 167/79 H Blood Pressure [Ri ght Upper Arm] Blood Pressure [or thostatic lying Ri ght Arm] Blood Pressure [or thostatic sitting Right Arm] Blood Pressure [or thostatic standing Right Arm] Pulse Oximetry 94 91 Oxygen Delivery Ia thod Room Air Room Air 07/16/22 17:30 07/16/22 18:10 07/16/22 18:52 Temperature 97.6 F 97.4 F L Pulse Rate Pulse Rate [Left P ulse Oximeter] 109 H 110 H 104 H Pulse Rate [Right Pulse Oximeter] Pulse Rate [orthos tatic lying Right Pulse Oximeter] Pulse Rate [orthos tatic sitting Righ t Pulse Oximeter] Pulse Rate [orthos tatic standing Rig ht Pulse Oximeter] Respiratory Rate 16 16 Blood Pressure [Ri ght Arm] 119/72 124/63 Blood Pressure [Ri ght Upper Arm] Blood Pressure [or thostatic lying Ri ght Arm] Blood Pressure [or thostatic sitting Right Arm] Blood Pressure [or thostatic standing Right Arm] Pulse Oximetry 91 92 Oxygen Delivery Ia thod Room Air Room Air 07/16/22 19:00 07/16/22 20:02 07/16/22 23:00 Temperature 98.3 F Pulse Rate Pulse Rate [Left P ulse Oximeter] 116 H 116 H Pulse Rate [Right Pulse Oximeter] Pulse Rate [orthos tatic lying Right Pulse Oximeter] Pulse Rate [orthos tatic sitting Righ t Pulse Oximeter] Pulse Rate [orthos tatic standing Rig ht Pulse Oximeter] Respiratory Rate 18 Blood Pressure [Ri ght Arm] 124/66 Blood Pressure [Ri ght Upper Arm] Blood Pressure [or thostatic lying Ri ght Arm] Blood Pressure [or thostatic sitting Right Arm] Blood Pressure [or thostatic standing Right Arm] Pulse Oximetry 94 94 Oxygen Delivery Me thod Room Air 07/16/22 23:00 07/17/22 00:00 07/17/22 02:43 Temperature 97.6 F 98.0 F Pulse Rate Pulse Rate [Left P ulse Oximeter] 116 H 109 H Pulse Rate [Right Pulse Oximeter] Pulse Rate [orthos tatic lying Right Pulse Oximeter] Pulse Rate [orthos tatic sitting Righ t Pulse Oximeter] Pulse Rate [orthos tatic standing Rig ht Pulse Oximeter] Respiratory Rate 18 18 Blood Pressure [Ri ght Arm] 127/77 125/85 Blood Pressure [Ri ght Upper Arm] Blood Pressure [or thostatic lying Ri ght Arm] Blood Pressure [or thostatic sitting Right Arm] Blood Pressure [or thostatic standing Right Arm] Pulse Oximetry 94 94 96 Oxygen Delivery Me thod Room Air Room Air 07/17/22 02:46 07/17/22 06:00 Temperature Pulse Rate Pulse Rate [Left P ulse Oximeter] Pulse Rate [Right Pulse Oximeter] Pulse Rate [orthos tatic lying Right Pulse Oximeter] 103 H Pulse Rate [orthos tatic sitting Righ t Pulse Oximeter] 96 Pulse Rate [orthos tatic standing Rig ht Pulse Oximeter] 102 H Respiratory Rate Blood Pressure [Ri ght Arm] Blood Pressure [Ri ght Upper Arm] Blood Pressure [or thostatic lying Ri ght Arm] 114/81 Blood Pressure [or thostatic sitting Right Arm] 117/81 Blood Pressure [or thostatic standing Right Arm] 120/82 Pulse Oximetry 96 Oxygen Delivery Me thod Labs Labs: Laboratory Results - last 24 hr 07/16/22 07/16/22 07/16/22 07:25 08:26 09:13 WBC 29.51 H* RBC 6.23 H Hgb 17.0 Hct 49.6 MCV 80 MCH 27 MCHC 34 RDW Coeff of Lucy 14.3 Plt Count 270 Neut % (Auto) 90.2 H Lymph % (Auto) 4.3 L [place] % (Auto) 4.8 Eos % (Auto) 0.0 Baso % (Auto) 0.1 Neut # (Auto) 26.60 H Lymph # (Auto) 1.30 [place] # (Auto) 1.40 H Eos # (Auto) 0.00 Baso # (Auto) 0.00 Diff Slide Review Acceptable Review Sodium 132 L Potassium 4.4 Chloride 98 Carbon Dioxide 21 BUN 18 Creatinine 1.7 H Estimated Creat Clear 59.29 Estimated GFR 58 Glucose 170 H Hemoglobin A1c 5.45 Calcium 9.0 Total Bilirubin 1.7 H Direct Bilirubin 0.8 H AST 29 ALT 72 H Alkaline Phosphatase 93 C-Reactive Protein 33.2 H Total Protein 8.1 Albumin 4.6 Amylase 59 Lipase 32 Procalcitonin 120.00 H Urine Color Lori A Urine Appearance Slightly Cloudy A Urine pH 5.0 Ur Specific [place] >= 1.030 Urine Protein 3+ A Urine Glucose (UA) Negative Urine Ketones Trace A Urine Blood Trace-intact A Urine Nitrite Positive A Urine Bilirubin 2+ A Urine Urobilinogen 1.0 Ur Leukocyte Esterase Negative Urine RBC 0-2 Urine WBC 0-2 Ur Squamous Epith Cells None Amorphous Sediment Moderate A Urine Bacteria Many A SARS-CoV-2 (PCR) POSITIVE SARS-CoV-2 A SARS-CoV-2 Ag (Rapid) negative 07/17/22 06:10 WBC 17.47 H RBC 5.22 Hgb 14.1 Hct 42.0 MCV 81 MCH 27 MCHC 34 RDW Coeff of [place] 14.5 Plt Count 213 Neut % (Auto) 87.8 H Lymph % (Auto) 8.0 L [place] % (Auto) 3.7 Eos % (Auto) 0.1 Baso % (Auto) 0.1 Neut # (Auto) 15.30 H Lymph # (Auto) 1.40 [place] # (Auto) 0.60 Eos # (Auto) 0.00 Baso # (Auto) 0.00 Diff Slide Review Sodium 139 Potassium 4.0 Chloride 108 Carbon Dioxide 24 BUN 13 Creatinine 0.8 Estimated Creat Clear 125.99 Estimated GFR 128 Glucose 128 H Hemoglobin A1c Calcium 8.4 Total Bilirubin 1.0 Direct Bilirubin 0.5 AST 23 ALT 51 H Alkaline Phosphatase 81 C-Reactive Protein Total Protein 6.8 Albumin 3.6 Amylase Lipase Procalcitonin Urine Color Urine Appearance Urine pH Ur Specific [place] Urine Protein Urine Glucose (UA) Urine Ketones Urine Blood Urine Nitrite Urine Bilirubin Urine Urobilinogen Ur Leukocyte Esterase Urine RBC Urine WBC Ur Squamous Epith Cells Amorphous Sediment Urine Bacteria SARS-CoV-2 (PCR) SARS-CoV-2 Ag (Rapid)
[2022-07-17 07:44] LABS: C Reactive Protein* 36.8 mg/dL (0.5-1.0)
--- NOTE | 2022-07-17 09:59 | P.GSPN_ITS ---
Subjective Subjective Date Seen: 07/17/22 Interval history: Favio has been stable overnight. He still has abdominal pain. Not particularly better since surgery. He has no nausea or vomiting. Has been tolerating a regular diet. Exam Narrative: Exam Narrative: General: No acute distress Respiratory: Clear to auscultation bilaterally CV: Tachycardic but regular Abdomen: Protuberant. Dried blood noted on Steri-Strips. No erythema around incisions. Drain output is serous. Const: Vital Signs, click to edit/add: Vital Signs - 24 hr 07/16/22 13:49 07/16/22 13:58 07/16/22 13:30 Temperature 98.4 F 98.4 F Pulse Rate 115 H Pulse Rate [Left P ulse Oximeter] 115 H Pulse Rate [orthos tatic lying Right Pulse Oximeter] Pulse Rate [orthos tatic sitting Righ t Pulse Oximeter] Pulse Rate [orthos tatic standing Rig ht Pulse Oximeter] Respiratory Rate 16 16 Blood Pressure [Ri ght Arm] 129/79 129/79 Blood Pressure [or thostatic lying Ri ght Arm] Blood Pressure [or thostatic sitting Right Arm] Blood Pressure [or thostatic standing Right Arm] Pulse Oximetry 94 93 Oxygen Delivery Me thod Room Air Room Air 07/16/22 13:45 07/16/22 15:30 07/16/22 16:24 Temperature 97.6 F 97.6 F Pulse Rate Pulse Rate [Left P ulse Oximeter] 110 H 109 H Pulse Rate [orthos tatic lying Right Pulse Oximeter] Pulse Rate [orthos tatic sitting Righ t Pulse Oximeter] Pulse Rate [orthos tatic standing Rig ht Pulse Oximeter] Respiratory Rate 16 16 Blood Pressure [Ri ght Arm] 129/129 H 122/78 Blood Pressure [or thostatic lying Ri ght Arm] Blood Pressure [or thostatic sitting Right Arm] Blood Pressure [or thostatic standing Right Arm] Pulse Oximetry 93 94 94 Oxygen Delivery Me thod Room Air Room Air 07/16/22 14:00 07/16/22 14:15 07/16/22 14:30 Temperature 97.9 F 97.9 F 97.2 F L Pulse Rate Pulse Rate [Left P ulse Oximeter] 111 H 108 H 104 H Pulse Rate [orthos tatic lying Right Pulse Oximeter] Pulse Rate [orthos tatic sitting Righ t Pulse Oximeter] Pulse Rate [orthos tatic standing Rig ht Pulse Oximeter] Respiratory Rate 16 16 16 Blood Pressure [Ri ght Arm] 117/75 137/50 L Blood Pressure [or thostatic lying Ri ght Arm] Blood Pressure [or thostatic sitting Right Arm] Blood Pressure [or thostatic standing Right Arm] Pulse Oximetry 93 94 94 Oxygen Delivery Me thod Room Air Room Air Room Air 07/16/22 15:00 07/16/22 16:30 07/16/22 17:30 Temperature 97.6 F 97.6 F Pulse Rate Pulse Rate [Left P ulse Oximeter] 103 H 109 H 109 H Pulse Rate [orthos tatic lying Right Pulse Oximeter] Pulse Rate [orthos tatic sitting Righ t Pulse Oximeter] Pulse Rate [orthos tatic standing Rig ht Pulse Oximeter] Respiratory Rate 16 16 Blood Pressure [Ri ght Arm] 167/79 H 119/72 Blood Pressure [or thostatic lying Ri ght Arm] Blood Pressure [or thostatic sitting Right Arm] Blood Pressure [or thostatic standing Right Arm] Pulse Oximetry 91 91 Oxygen Delivery Me thod Room Air Room Air 07/16/22 18:10 07/16/22 18:52 07/16/22 19:00 Temperature 97.4 F L 98.3 F Pulse Rate Pulse Rate [Left P ulse Oximeter] 110 H 104 H 116 H Pulse Rate [orthos tatic lying Right Pulse Oximeter] Pulse Rate [orthos tatic sitting Righ t Pulse Oximeter] Pulse Rate [orthos tatic standing Rig ht Pulse Oximeter] Respiratory Rate 16 18 Blood Pressure [Ri ght Arm] 124/63 124/66 Blood Pressure [or thostatic lying Ri ght Arm] Blood Pressure [or thostatic sitting Right Arm] Blood Pressure [or thostatic standing Right Arm] Pulse Oximetry 92 94 Oxygen Delivery Me thod Room Air Room Air 07/16/22 20:02 07/16/22 23:00 07/16/22 23:00 Temperature 97.6 F Pulse Rate Pulse Rate [Left P ulse Oximeter] 116 H 116 H Pulse Rate [orthos tatic lying Right Pulse Oximeter] Pulse Rate [orthos tatic sitting Righ t Pulse Oximeter] Pulse Rate [orthos tatic standing Rig ht Pulse Oximeter] Respiratory Rate 18 Blood Pressure [Ri ght Arm] 127/77 Blood Pressure [or thostatic lying Ri ght Arm] Blood Pressure [or thostatic sitting Right Arm] Blood Pressure [or thostatic standing Right Arm] Pulse Oximetry 94 94 Oxygen Delivery Me thod Room Air 07/17/22 00:00 07/17/22 02:43 07/17/22 02:46 Temperature 98.0 F Pulse Rate Pulse Rate [Left P ulse Oximeter] 109 H Pulse Rate [orthos tatic lying Right Pulse Oximeter] Pulse Rate [orthos tatic sitting Righ t Pulse Oximeter] Pulse Rate [orthos tatic standing Rig ht Pulse Oximeter] Respiratory Rate 18 Blood Pressure [Ri ght Arm] 125/85 Blood Pressure [or thostatic lying Ri ght Arm] Blood Pressure [or thostatic sitting Right Arm] Blood Pressure [or thostatic standing Right Arm] Pulse Oximetry 94 96 96 Oxygen Delivery Me thod Room Air 07/17/22 06:00 07/17/22 07:00 07/17/22 07:00 Temperature 98.4 F Pulse Rate Pulse Rate [Left P ulse Oximeter] 97 97 Pulse Rate [orthos tatic lying Right Pulse Oximeter] 103 H Pulse Rate [orthos tatic sitting Righ t Pulse Oximeter] 96 Pulse Rate [orthos tatic standing Rig ht Pulse Oximeter] 102 H Respiratory Rate 18 18 Blood Pressure [Ri ght Arm] 140/96 H Blood Pressure [or thostatic lying Ri ght Arm] 114/81 Blood Pressure [or thostatic sitting Right Arm] 117/81 Blood Pressure [or thostatic standing Right Arm] 120/82 Pulse Oximetry 94 Oxygen Delivery Me thod Room Air 07/17/22 07:48 Temperature Pulse Rate Pulse Rate [Left P ulse Oximeter] Pulse Rate [orthos tatic lying Right Pulse Oximeter] Pulse Rate [orthos tatic sitting Righ t Pulse Oximeter] Pulse Rate [orthos tatic standing Rig ht Pulse Oximeter] Respiratory Rate Blood Pressure [Ri ght Arm] Blood Pressure [or thostatic lying Ri ght Arm] Blood Pressure [or thostatic sitting Right Arm] Blood Pressure [or thostatic standing Right Arm] Pulse Oximetry 94 Oxygen Delivery Me thod Labs/Imaging Labs Labs: Labs today reveal: Kidney function and electrolytes have normalized. A1c was within normal limits. Still mildly hyperglycemic. Liver tests have nearly returned to baseline with the ALT being 51 (high normal is 50) CRP is up today to 36 from 33 White blood cell count is 17 from 11/01 Progress Note: A&P Assessment and plan (1) CHENTE (acute kidney injury): Problem details: resolved. hospital team can sign off unless needed. Status: Acute Assessment and Plan: Resolved. Have added Toradol for pain control as kidney function is now normal. (2) Hyperglycemia: Problem details: Stress induced. HgA1C 5.45 on 07/16/22. no further intervention. Hospitalist recommended weight loss, exercise going forward. Status: Acute Assessment and Plan: Blood sugar improved today. (3) UTI (urinary tract infection): Problem details: UC pending. likely inflammatory from infection; covered by zosyn. Status: Acute (4) Real time reverse transcriptase PCR positive for COVID-19 virus: Problem details: symptomatic in Apr 2022. Antigen neg pre-op. PCR pos pre-op (June 2022) Status: Acute Assessment and Plan: Continue COVID precautions on unit. (5) Acute appendicitis: Problem details: post op day 1. continue zosyn at least another 24 hours. May DC patient Status: Acute (6) S/P laparoscopic appendectomy: Status: Acute Plan The patient is a 22-year-old male postop day 1 status post laparoscopic appendectomy for perforated appendicitis. He is overall improved though he is still mildly tachycardic. He has been afebrile. -patient is on a regular diet though I instructed him to go slowly. He may be saline locked when his p.o. intake is sufficient. He has not had any nausea but I do expect an ileus. -I encouraged him to use incentive spirometry. Will ask the RN if he may a mbulate on the unit given the COVID precautions. This will help him in his recovery. -have added Toradol for pain control given his now normal kidney function. -will continue IV antibiotics for another day given his tachycardia. If he continues to improve may discharge home on IV antibiotics. -continue drain for now. Anticipate removal prior to discharge. -started Lovenox for DVT prophylaxis today. -repeat labs tomorrow.
[2022-07-17] MEDS: ENOXAPARIN 40 MG/0.4 ML INJ SUBCUT (10:05)
--- NOTE | 2022-07-17 15:10 | PC.NURSE ---
End of shift note: Pt. alert and oriented x4, denies N/V/SOB, pt. is passing gas but no BM.? KELLY drain patent and draining, serosanguineous. Lap sites to abd, x4, steri strips in place, old drainage noted at beginning of shift, no change to amount during shift. Dressing changed around KELLY drain. Bowel sounds hypoactive w/few pop heard. Pt applied ice to abd throughout shift, Pt. rated pain 5/10 and PRN toradol administered x1 see eMAR. Pt. ambulated hallways indep. and tolerated activity well. Up indep. in room and to BR.
--- NOTE | 2022-07-17 18:56 | PC.NURSE ---
Pt calm and cooperative during shift. Pt had no complaints of pain. Pt is independent in room. Pt KELLY drain emptied, and line stripped at 1800. Pt blood glucose 100 no intervention needed. Pt has had very little appetite during shift.?
[2022-07-17] MEDS: 0.9 % SODIUM CHLORIDE 250 ml IV (22:32)
[2022-07-17] MEDS: SODIUM CHLORIDE 0.9 % (FLUSH) 10 ML SYRINGE 5 ML IVF (22:33)
--- NOTE | 2022-07-17 23:28 | PC.NURSE ---
End of Shift: Patient pleasant and cooperative. Afebrile. Rating pain 3/10 and denies need for PRN pain medication. Up independently in room. Patient took bites of dinner. Denies nausea and states passing flatus. KELLY drain emptied x2 of purulent drainage.
[2022-07-18 00:30] VITALS: BP 134/99; PULSE 101; RESP 16; TEMP 37.2; O2SAT 97
[2022-07-18 04:00] VITALS: BP 128/89; PULSE 93; RESP 16; TEMP 37.5; O2SAT 96
[2022-07-18] MEDS: PIPERACILLIN/TAZOBACTAM 3.375 GM in 0.9 % SODIUM CHLORIDE Mini-bag 100 ML IVPB ×2 (04:51→10:17)
[2022-07-18 06:17] LABS: Basophils Percent Auto 0.1 % (0.0-3.0); Eosinophils Percent Auto 0.3 % (0.0-7.0); Hemoglobin* 13.1 gm/dL (13.5-17.5); Immature Granulocytes Pct Auto 1.1 %; Lymphocytes Percent Auto 10.4 % (20-44); Mean Corpuscular HGB Conc 34 gm/dL (32-36); Mean Corpuscular Hemoglobin 27 pg (26-34); Mean Corpuscular Volume 81 fL (80-100); Monocytes Percent Auto 3.8 % (0.0-11.0); Neutrophils Percent Auto 84.3 % (42.0-72.0); Platelet Count* 225 K/uL (140-440); RDW Coefficient of Variation % 14.6 % (11.5-15.5); Red Blood Count 4.84 m/uL (4.30-5.90); White Blood Count* 15.71 K/uL (4.50-11.00)
[2022-07-18 06:22] LABS: Slide Review Reflex No
[2022-07-18 06:31] LABS: Chloride* 104 mmol/L (96-114); Sodium* 132 mmol/L (135-149)
[2022-07-18 06:32] LABS: Potassium* 3.9 mmol/L (3.6-5.1)
--- NOTE | 2022-07-18 06:33 | PC.NURSE ---
Shift note: The pt has been pleasant and cooperative. The surgical lap sites have been intact with old dried blood ; the KELLY tube has been stripped Q4H ; about 180 cc of dark yellow drain emptied from the pouch over 8 hours. Hypoactive bowel sounds noted. The pt stated that he has been passing flatus. Denied nausea or vomiting . The pt has been reporting 3-4/10 abdominal pain ; refused PRN pain medications stating the pain is tolerable. HR has been in the 90s when the pt sleeps and low 100-110 with activity. The pt appeared without any acute distress throughout the night. Spo2 has been in the 90s in RA.
[2022-07-18 06:34] LABS: Creatinine* 0.7 mg/dL (0.5-1.5); Est. Creatinine Clearance* 143.99; Estimated Glomerular Filt Rate 134 ml/min
[2022-07-18 06:35] LABS: Blood Urea Nitrogen* 12 mg/dL (5-24); Carbon Dioxide* 23 mmol/L (20-32); Glucose* 95 mg/dL (60-115)
[2022-07-18 08:00] VITALS: BP 134/94; PULSE 97; RESP 18; TEMP 36.9; O2SAT 97
[2022-07-18] MEDS: SODIUM CHLORIDE 0.9 % (FLUSH) 10 ML SYRINGE 5 ML IVF (08:34)
--- NOTE | 2022-07-18 09:01 | P.DS_ITS ---
DS: Providers Provider Date Seen: 07/18/22 Date of admission: 07/17/22 13:58 Primary care physician: Hima Carney MD Admitting Clinician: Dorcas Sidhu MD Attending Physician on discharge: Dorcas Sidhu MD Date of Discharge: 07/18/22 DS: Diagnosis Discharge Diagnosis (1) S/P laparoscopic appendectomy: Status: Acute Problem details: The patient underwent laparoscopic appendectomy for perforated appendicitis on 07/16/2022. (2) Acute appendicitis: Status: Acute (3) Real time reverse transcriptase PCR positive for COVID-19 virus: Status: Acute Problem details: symptomatic in Apr 2022. Antigen neg pre-op. PCR pos pre-op (June 2022) (4) Hyperglycemia: Status: Acute Problem details: Stress induced. HgA1C 5.45 on 07/16/22. no further intervention. Hospitalist recommended weight loss, exercise going forward. (5) CEHNTE (acute kidney injury): Status: Acute Problem details: Resolved. Creatinine up to 1.7 on admission, returned to normal on postop day 1. (6) Obesity: Status: Acute Problem details: BMI 35 on 07/14 (7) Hepatomegaly: Status: Acute Problem details: Noted on CT scan. (8) Hepatic steatosis: Status: Acute Problem details: Noted on CT scan. Mild LFT elevation on admission which resolved. DS: Summary Hospital Course Hospital Course: The patient presented to the emergency department on 07/16/2022 with acute appendicitis likely perforated. He initially was tachycardic and febrile with acute kidney injury with a creatinine of 1.7, hyperglycemia and also had a very positive UA. He of note tested positive for COVID with PCR however tested negative on the antigen test. He was taken to the operating room for emergent laparoscopic appendectomy. The appendix was noted to be perforated however fairly well contained. This was removed without difficulty. A drain was left postoperatively. The patient was then admitted to the hospital for IV antibiotics. The hospitalist did see the patient given his hyperglycemia. A1c was 5. Kidney function recovered and his urine culture later grew back mixed les. On postoperative day 2 his white blood cell count had dropped significantly as well as his CRP. He was tolerating a diet and moving his bowels. He had not been febrile since surgery. His surgical drain which had clear serous fluid in it was removed. He was deemed safe for discharge with follow-up with his primary care provider. Time Spent with Patient Time attestation: Total time spent providing and/or coordinating discharge services: Exam Narrative: Exam Narrative: General appearance: Alert, cooperative, and in no distress Eyes: PERRLA, eye lids clear, and sclera white HENT Head: Normocephalic Ears: External ears normal Pulmonary: Breathing nonlabored on room air Cardiovascular Heart: Regular rate and rhythm Extremities: warm and well perfused Gastrointestinal Abdominal: Protuberant. Dried blood noted on incisions. Abdominal pain appropriate for the postoperative state. Drain with serous fluid removed. Musculoskeletal: Extremities: Upper: Both upper extremities have normal joint range of motion and intact strength. Lower: Both lower extremities have normal joint range of motion and intact strength. Skin: Normal skin color, texture, and turgor. No rashes or lesions. Neurologic: No focal deficits Psychiatric: Alert, oriented, cooperative, normal affect. Const: Vital Signs, click to edit/add: Vital Signs - 24 hr 07/17/22 11:00 07/17/22 11:13 07/17/22 15:00 Temperature 98.4 F 99.3 F Pulse Rate [Left P ulse Oximeter] 99 84 Respiratory Rate 18 18 Blood Pressure [Ri ght Arm] 140/95 H 144/77 H Pulse Oximetry 94 94 95 Oxygen Delivery Me thod Room Air Room Air 07/17/22 16:00 07/17/22 19:00 07/17/22 20:00 Temperature 98.2 F Pulse Rate [Left P ulse Oximeter] 86 Respiratory Rate 16 Blood Pressure [Ri ght Arm] 130/87 Pulse Oximetry 95 97 97 Oxygen Delivery Me thod Room Air 07/18/22 00:30 07/18/22 00:30 07/18/22 00:30 Temperature 98.9 F Pulse Rate [Left P ulse Oximeter] 101 H 101 H Respiratory Rate 16 16 Blood Pressure [Ri ght Arm] 134/99 H Pulse Oximetry 97 97 Oxygen Delivery Me thod Room Air 07/18/22 04:00 07/18/22 04:00 07/18/22 08:00 Temperature 99.5 F 98.4 F Pulse Rate [Left P ulse Oximeter] 93 97 Respiratory Rate 16 18 Blood Pressure [Ri ght Arm] 128/89 134/94 H Pulse Oximetry 96 96 97 Oxygen Delivery Me thod Room Air Room Air 07/18/22 08:00 Temperature Pulse Rate [Left P ulse Oximeter] Respiratory Rate Blood Pressure [Ri ght Arm] Pulse Oximetry 97 Oxygen Delivery Me thod DS: Data Data Completed and Pending Labs on day of discharge: Labs from last 24 hours 07/18/22 06:00 WBC 15.71 H RBC 4.84 Hgb 13.1 L Hct 39.0 MCV 81 MCH 27 MCHC 34 RDW Coeff of Lucy 14.6 Plt Count 225 Neut % (Auto) 84.3 H Lymph % (Auto) 10.4 L [place] % (Auto) 3.8 Eos % (Auto) 0.3 Baso % (Auto) 0.1 Neut # (Auto) 13.20 H Lymph # (Auto) 1.60 [place] # (Auto) 0.60 Eos # (Auto) 0.00 Baso # (Auto) 0.00 Sodium 132 L Potassium 3.9 Chloride 104 Carbon Dioxide 23 BUN 12 Creatinine 0.7 Estimated Creat Clear 143.99 Estimated GFR 134 Glucose 95 Calcium 8.0 L C-Reactive Protein 18.0 H Discharge Plan Discharge Disposition: Home, Self-Care Date of Admission: 07/17/22 13:58 Attending Provider on Discharge: Dorcas Sidhu Primary Care Provider: Hima Carney Condition: Improved Anticipated Discharge Date/Time: 07/18/22 12:00 Discharge Medications: New hydrocodone-acetaminophen 5-325 mg tablet 1 - 2 tab PO Q6H PRN (Reason: Pain) Qty: 25 0RF Rx Instructions: 1 - 2 tab orally as needed amoxicillin-pot clavulanate 875-125 mg tablet 1 tab PO BID Qty: 14 0RF Discharge Orders: Discharge Order (Routine); Ordered 07/18/22 Ordered By: Dorcas Sidhu Patient Education: Hydrocodone/Acetaminophen (By mouth) (Vicodin, [place], Lort ab), Amoxicillin/Clavulanate Potassium (By mouth) (Augmentin, Augmentin..., Laparoscopic Appendectomy (DC) Additional Instructions: Wound care: Your sutures are under the skin and will dissolve over time. Leave steri strips (white bandages) over incisions until they fall off (or remove after 7 days). OK to shower tomorrow but avoid bathing, soaking or swimming for 2 weeks. Pat the incisions dry. No need to wash or scrub the area. Apply ice to the area as needed for swelling. It is also OK to use a heating pad if this provides more comfort to you. Pain control: You were prescribed a pain medication. This medication contains acetaminophen (Tylenol). If you are taking your prescribed pain pills 4 times daily, do not take additional acetaminophen. As your pain improves, you can try taking acetaminophen instead of the prescribed pain pill. It is ok to take Ibuprofen or Naproxen (per directions on packaging). This medication helps with inflammation and swelling. Take an [id number] stool softener while you are taking prescribed pain medications to help alleviate constipation. I recommend Senna and/or Colace. Take as directed on package. If you have not had a bowel movement in 3 days, try taking Miralax as directed on the package. All of these are available over the counter. Follow-up Follow up with Dr. Sidhu in 2-3 weeks Please call if you are experiencing severe pain, nausea, vomiting, difficulty urinating, fever or have not had bowel movement in 4 days after surgery. Activity Level: No strenuous activity Activity Detail: No lifting more than 20 pounds for 2 weeks Discharge Diet: Regular Follow Up Appointments: Hima Carney MD [Primary Care Provider] - Dorcas Sidhu MD [Staff Physician] - 08/03/22 9:30 am ([facility].) Forms: Work/School Release
[2022-07-18] MEDS: ENOXAPARIN 40 MG/0.4 ML INJ SUBCUT (10:17)
[2022-07-18] MEDS: ACETAMINOPHEN 325 MG TABLET 650 MG PO (10:18)
[2022-07-18 11:09] VITALS: PULSE 115; RESP 18; TEMP 36.9
--- NOTE | 2022-07-18 12:25 | PC.NURSE ---
Addendum entered by Natalie Estrada RN 07/18/22 13:01: Discharged at 1235 Original Note: D/C: Patient A&O. VS WNL . Ind in room. Abd pain rating from 3-6/10. Relieved by PRN Tylenol. Dr. Sidhu removed KELLY drain. Dressings C/D/I. Hypoactive bowel sounds in all 4 quadrants. Last BM 07/18/22. Tolerating regular diet. Only eating small amounts. No N/V. Both IVs removed with tips intact. Discharge instructions were given verbally and written copy sent home with patient. All questions answered.
== END 2022-07-18 12:35 | disposition home or self-care (01) | DRG 338 ==
LOC: ED 09:31 → SS 11:07 → MEDSURG 14:26 → SS 07-17 14:14 → MEDSURG 07-17 14:14
PROVIDERS: Family Medicine; Internal Medicine; Admitting Provider Surgery; Emergency Provider Internal Medicine; PCP Family Medicine; Visit Provider Surgery
PROC: 0DTJ4ZZ Resection of Appendix, Percutaneous Endoscopic Approach (ICD-10-PCS; CPT 44970; principal; 2022-07-16 11:00)
DX: K35.32 Acute appendicitis with perforation, localized peritonitis, and gangrene, without abscess; U07.1 COVID-19; N17.9 Acute kidney failure, unspecified; N39.0 Urinary tract infection, site not specified; R73.9 Hyperglycemia, unspecified; Z68.35 Body mass index [BMI] 35.0-35.9, adult; E66.9 Obesity, unspecified; J35.1 Hypertrophy of tonsils; K76.0 Fatty (change of) liver, not elsewhere classified
CPT/HCPCS: 00840; 36415; 74177; 76942; 80048; 80053; 80076; 81003; 81015; 82150; 82248; 82962; 83036; 83690; 84145; 85025; 86140; 87086; 87426; 87635; 88304; 93005; 99140; 99285; A9270; C9290; J0330; J1100; J1170; J1650; J1885; J2250; J2405; J2543; J2704; J3010; J3490; J7030; J7050; J7120; Q9967